=== PATIENT | male | born 1955 | race Caucasian/White ===

== ENCOUNTER 2019-12-10 09:04 | Inpatient (IN) | payer BC ==
[2019-12-03 17:00] VITALS: BMI 36.9
--- NOTE | 2019-12-10 07:42 | HP ---
Admitting History and Physical - Admission Chief Complaint: right knee osteoarthritis x years History of Present Illness: 64 year old male presents in regard to their right knee. Long-standing history of right knee osteoarthritis. Patient complains of pain, limited range of motion , difficulty ambulating, and difficulty with activities of daily living. Patient has failed conservative treatment options including PO medications, activity modification, injections, and exercise programs. At this point, patient like to proceed with surgical intervention, right total knee arthroplasty MAKOplasty. History Source: Patient - Past Medical History Cardiovascular: Yes: HTN Musculoskeletal: Yes: Osteoarthritis - Past Surgical History Additional Past Surgical History: See written history & physical. - Smoking History Smoking history: Never smoked Have you smoked in the past 12 months: No - Alcohol/Substance Use Hx Alcohol Use: Yes (SOCIAL) Home Medications - Allergies Allergies/Adverse Reactions: Allergies Allergy/AdvReac Type Severity Reaction Status Date / Time No Known Allergies Allergy Verified 12/03/19 16:49 - Home Medications Home Medications: Ambulatory Orders Fish Oil 1,000 mg Capsule 1 tab PO DAILY 12/03/19 Spironolactone 25 mg PO DAILY 12/03/19 Valsartan 320 mg PO DAILY 12/03/19 Review of Systems - Review of Systems Musculoskeletal: reports: Crepitus (right knee), Decreased ROM (right knee), Joint Pain (right knee), Joint Swelling (right knee) Physical Examination Constitutional: Yes: Well Nourished Eyes: Yes: Conjunctiva Clear HENT: Yes: Atraumatic Neck: Yes: Supple Cardiovascular: Yes: Regular Rate and Rhythm Respiratory: Yes: Regular Gastrointestinal: Yes: Soft ...Rectal Exam: Yes: Deferred Musculoskeletal: Yes: Joint Stiffness (right knee), Joint Swelling (right knee) Assessment/Plan 64 year male old presents in regard to their right knee. Long-standing history of right knee osteoarthritis. Patient complains of pain, limited range of motion , difficulty ambulating, and difficulty with activities of daily living. Patient has failed conservative treatment options including PO medications, activity modification, injections, and exercise programs. At this point, patient like to proceed with surgical intervention, right total knee arthroplasty MAKOplasty. Pros, cons, risks, benefits, and alternatives of a right total knee arthroplasty MAKOplasty were discussed with the patient at length. Patient confirms their understanding and consents to proceed with a right total knee arthroplasty MAKOplasty.
[~2019-12-10 09:04] MED LIST: CEFAZOLIN 2 GM in DEXTROSE 5%-WATER - 50 ML IVPB ONE; CELECOXIB 200 MG CAPSULE PO ONE; PANTOPRAZOLE 40 MG TABLET PO ONE; TRANEXAMIC ACID 1000 MG/10 ML VIAL IVPB ONE; TRANEXAMIC ACID 1000 MG/10 ML VIAL IVPUSH ONE; VANCOMYCIN 1,000 MG VIAL (RESTRICTED TO ID ONLY) IVPB ONE; oxyCODONE HCL 10 MG SUSTAINED ACTING TABLET PO ONE
[2019-12-10] MEDS ORDERED: DEXAMETHASONE SOD PHOSPHATE 4 MG/1 ML VIAL ONE ×2 (10:07→12:32)
[2019-12-10] MEDS ORDERED: KETOROLAC TROMETHAMINE 30 MG/1 ML VIAL ONE (10:07)
[2019-12-10] MEDS ORDERED: ONDANSETRON 4 MG/2 ML VIAL ONE ×2 (10:07→12:32)
[2019-12-10] MEDS ORDERED: TRANEXAMIC ACID 1000 MG/10 ML VIAL ONE ×4 (10:07→14:58)
[2019-12-10] MEDS ORDERED: ceFAZolin SODIUM 1 GM VIAL ONE ×3 (10:07→12:32)
[2019-12-10] MEDS ORDERED: PANTOPRAZOLE 40 MG TABLET ONE (10:08)
[2019-12-10] MEDS ORDERED: CELECOXIB 200 MG CAPSULE ONE (10:08)
[2019-12-10] MEDS ORDERED: MIDAZOLAM HCL 2 MG/2 ML SINGLE DOSE VIAL ONE ×3 (10:08→12:12)
[2019-12-10] MEDS ORDERED: oxyCODONE HCL 10 MG SUSTAINED ACTING TABLET ONE (10:08)
[2019-12-10] MEDS ORDERED: PROPOFOL 20 ML ONE ×3 (10:08→12:37)
[2019-12-10] MEDS ORDERED: BUPIVACAINE LIPOSOME/PF (EXPAREL) 266 MG/20 ML VIAL ONE (10:16)
[2019-12-10] MEDS ORDERED: VANCOMYCIN 1,000 MG VIAL (RESTRICTED TO ID ONLY) ONE (10:16)
[2019-12-10] MEDS ORDERED: SODIUM CHLORIDE 0.9% P/F 10 ML VIAL IJ ONE (10:17)
[2019-12-10] MEDS ORDERED: SUCCINYLCHOLINE CHLORIDE 200 MG/10 ML SYRINGE ONE (12:37)
[2019-12-10] MEDS ORDERED: ONDANSETRON 4 MG/2 ML VIAL IVPUSH PRN ×2 (13:15→16:28)
[2019-12-10] MEDS ORDERED: oxyCODONE HCL 5 MG TABLET PO PRN ×2 (13:15)
[2019-12-10] MEDS ORDERED: ACETAMINOPHEN 325 MG TABLET (FP) PO SCH (14:00)
[2019-12-10] MEDS ORDERED: VANCOMYCIN 1,000 MG VIAL (RESTRICTED TO ID ONLY) IVPB ONE (14:52)
[2019-12-10] MEDS ORDERED: TRANEXAMIC ACID 1000 MG/10 ML VIAL IVPB ONE (15:12)
[2019-12-10] MEDS ORDERED: traMADol HCL 50 MG TABLET ONE (15:50)
[2019-12-10] MEDS ORDERED: ACETAMINOPHEN INJECTION 100 ML IVPB ONE (15:50)
[2019-12-10] MEDS ORDERED: ACETAMINOPHEN 1000 MG/100 ML VIAL (NON FORMULARY) IVPB ONE (16:19)
[2019-12-10] MEDS ORDERED: MAG HYDROX/AL HYDROX/SIMETH 30 ML UNIT-DOSE CUP PO PRN (16:28)
[2019-12-10] MEDS ORDERED: MAGNESIUM HYDROX 2400MG/30ML ORAL SUSPENSION 30 ML CUP PO PRN (16:28)
[2019-12-10] MEDS ORDERED: LACTATED RINGERS SOLUTION 1,000 ML IV SCH (16:30)
--- NOTE | 2019-12-10 16:50 | OP ---
Operative Note - Note: Operative Date: 12/10/19 Pre-Operative Diagnosis: right knee OA Operation: right CHIKIS TKA Post-Operative Diagnosis: Same as Pre-op Surgeon: Ren Benavidez Pointer Machine Operator: Ana Evans Anesthesia: Spinal Estimated Blood Loss (mls): 200
[2019-12-10] MEDS: CEFAZOLIN 2 GM/D5W 2 GM/50 ML ML IVPB SCH (20:05)
[2019-12-10] MEDS: GABAPENTIN 300 MG CAPSULE PO SCH (21:13)
[2019-12-10] MEDS: CELECOXIB 200 MG CAPSULE PO SCH (21:13)
[2019-12-10] MEDS: SENNOSIDES/DOCUSATE COMBO (SENNA PLUS) TABLET (UD) PO SCH (21:13)
[2019-12-10] MEDS: ASCORBIC ACID 500 MG TABLET (FP) PO SCH (21:13)
[2019-12-11] MEDS ORDERED: DEXAMETHASONE SOD PHOSPHATE 10 MG/1 ML VIAL IVPB ONE
[2019-12-11] MEDS: KETOROLAC TROMETHAMINE 30 MG/1 ML VIAL IVPUSH SCH ×4 (00:47→18:25)
[2019-12-11] MEDS: ACETAMINOPHEN 325 MG TABLET (FP) PO SCH ×4 (00:48→18:20)
[2019-12-11] MEDS: traMADol HCL 50 MG TABLET PO SCH ×4 (00:49→18:20)
[2019-12-11] MEDS: CEFAZOLIN 2 GM/D5W 2 GM/50 ML ML IVPB SCH (03:09)
--- NOTE | 2019-12-11 06:01 | SURG ---
Surgery Balance Wheel Motion Inspector Note Balance Wheel Motion Inspector: Ana Evans PA-C Date of Service: 12/10/19 Diagnosis: right knee osteoarthritis Procedure: right total knee arthroplasty, Makoplasty I was present for the entirety of the operative procedure. For further detail, please refer to operative report.
[2019-12-11 07:48] LABS: CALCIUM 8.6 mg/dl (8.5-10); CREATININE 1.2 mg/dl (0.55-1.3); POTASSIUM 3.8 mmol/L (3.5-5.1)
[2019-12-11] MEDS: ASPIRIN 325 MG TABLET PO SCH (08:05)
[2019-12-11] MEDS: CELECOXIB 200 MG CAPSULE PO SCH ×2 (10:34→21:17)
[2019-12-11] MEDS: SENNOSIDES/DOCUSATE COMBO (SENNA PLUS) TABLET (UD) PO SCH ×2 (10:34→21:17)
[2019-12-11] MEDS: GABAPENTIN 300 MG CAPSULE PO SCH ×2 (10:34→21:17)
[2019-12-11] MEDS: MULTIVITAMINS (DAILY MVI) TABLET (FP) PO SCH (10:34)
[2019-12-11] MEDS: PANTOPRAZOLE 40 MG TABLET PO SCH (10:34)
[2019-12-11] MEDS: ASCORBIC ACID 500 MG TABLET (FP) PO SCH ×2 (10:35→21:17)
[2019-12-11 10:40] LABS: HEMATOCRIT 45.1 % (35.4-49); HEMOGLOBIN 14.8 GM/dL (11.7-16.9); MCH 30.4 pg (25.7-33.7); MCHC 32.9 g/dl (32.0-35.9); MEAN CELL VOLUME 92.4 fl (80-96); MEAN PLT VOLUME 10.6 fl (7.5-11.1); PLATELET COUNT 215 K/MM3 (134-434); RBC 4.88 M/mm3 (4.00-5.60); WHITE BLOOD COUNT 16.2 K/mm3 (4.0-10.0)
--- NOTE | 2019-12-11 13:02 | PN ---
Progress Note (short form) - Note Progress Note: Anesthesia postop note 64 y/o M s/p spinal anesthesia and regional block for pain management, for TKR POD#1, vss, aaox3, pain well controlled, no complaints, had PT today. No anesthesia complications.
--- NOTE | 2019-12-11 19:23 | PN ---
Progress Note (short form) - Note Progress Note: Pt seen and examined. Doing well. AVSS Selected Entries 12/11/19 14:17 Temperature 97.4 F L Respiratory 19 Rate Blood Pressure 126/77 O2 Sat by Pulse 98 Oximetry (%) Laboratory Tests 12/11/19 12/11/19 06:45 06:45 WBC 16.2 H Hgb 14.8 Hct 45.1 Plt Count 215 Sodium 134 L Potassium 3.8 Chloride 100 Carbon Dioxide 25 Anion Gap 9 BUN 23.0 H Creatinine 1.2 Est GFR (CKD-EPI)AfAm 74.66 Est GFR (CKD-EPI)NonAf 64.42 Random Glucose 179 H Calcium 8.6 Gen: NAD RLE: c/d/i, NVID A/P POD#1 s/p R CHIKIS BAL PT/OOB D/C home in AM
--- NOTE | 2019-12-11 19:27 | DS ---
Physical Examination Vital Signs: Vital Signs Temperature 97.4 F L 12/11/19 14:17 Pulse Rate 80 12/11/19 04:00 Respiratory Rate 19 12/11/19 14:17 Blood Pressure 126/77 12/11/19 14:17 O2 Sat by Pulse Oximetry (%) 98 12/11/19 14:17 Labs: CBC, BMP 12/11/19 06:45 12/11/19 06:45 Discharge Summary Problems reviewed: Yes Reason For Visit: RIGHT KNEE OSTEOARTHRITIS Current Active Problems Osteoarthritis of right knee (Acute) Procedures: Principal: right CHIKIS TKA Hospital Course: Admitted for elective surgery. Procedure performed without complications. Pt received postoperative antibiotic prophylaxis and DVT ppx. Ambulated with physical therapy. Stable for discharge home with outpatient followup. Condition: Stable - Instructions Diet, Activity, Other Instructions: Dr. Benavidez - Knee Replacement Instructions Keep the Aquacel dressing on until removed by Dr. Benavidez in the office - it is antibacterial and waterproof and you can shower with it on. Call the office for a follow-up appointment with Dr. Benavidez in 2 weeks. Take one Aspirin 325mg daily for 6 weeks to prevent blood clots in your legs. Take one Pantoprazole 40mg daily for 6 weeks to protect against heartburn and ulcers. Take Cephalexin (antibiotic) 3x/day for 10 days to help prevent skin infection. Take Celebrex 200mg twice daily for 30 days to reduce swelling and inflammation. Take a multivitamin, stool softener, and extra Vitamin C supplement daily. For pain: *Mild pain (1-3/10): Take 1 Tramadol tablet every 4 hours as needed. Moderate pain (4-6/10): Take 1 Tramadol tablet and 1 Percocet tablet every 4 hours as needed. Severe pain (7-10/10): Take 1 Tramadol tablet and 2 Percocet tablets every 4 hours as needed. Activity: You can put as much weight on the operative leg as you want. Right after you get home, there will be a physical therapist coming to your house to help you walk around and bend/straighten your knee. After your follow-up appointment, you will be sent for more intensive outpatient physical therapy which will include machines and equipment that the home therapist cannot bring to your house. Always use a walker or cane for balance and to prevent falls. Expect to see swelling/bruising from the operative site all the way down to your toes. Wear the compression stocking on the operative side during the day to minimize how much swelling there is in your foot/ankle. Don't wear the stocking at night. You don't have to wear a stocking on the other side. Disposition: [facility]/HOME HEALTH CARE - Home Medications Comprehensive Discharge Medication List: Ambulatory Orders [place]-3 Fatty Acids/Fish Oil [Fish Oil 1,000 mg Capsule] 1 each PO DAILY 12/03/19 Spironolactone 25 mg PO DAILY 12/03/19 Valsartan 320 mg PO DAILY 12/03/19 Ascorbic Acid [Vitamin C -] 500 mg PO BID tablet 12/11/19 Aspirin [ASA -] 325 mg PO DAILY@0800 tablet 12/11/19 Celecoxib [CeleBREX -] 200 mg PO BID #60 capsule 12/11/19 Cephalexin Monohydrate [Keflex -] 500 mg PO TID #30 capsule 12/11/19 Multivitamins [Multivit ([facility] Formulary)] 1 tab PO DAILY tab 12/11/19 Oxycodone HCl/Acetaminophen [Percocet 5-325 mg Tablet] 1 - 2 tab PO Q4H PRN #60 tablet MDD 10 12/11/19 Pantoprazole Sodium [Protonix -] 40 mg PO DAILY #40 tablet.ec 12/11/19 Sennosides/Docusate Sodium [Pericolace -] 2 tablet PO BID tablet 12/11/19 traMADol HCL [Ultram -] 50 mg PO Q4H PRN #42 tablet MDD 6 12/11/19
[2019-12-12] MEDS: traMADol HCL 50 MG TABLET PO SCH ×2 (00:03→06:14)
[2019-12-12] MEDS: ACETAMINOPHEN 325 MG TABLET (FP) PO SCH ×2 (00:04→06:15)
[2019-12-12 07:43] LABS: HEMOGLOBIN 12.6 GM/dl (11.7-16.9)
[2019-12-12 07:47] LABS: HEMATOCRIT 37.7 % (35.4-49); MCH 30.9 pg (25.7-33.7); MCHC 33.6 g/dl (32.0-35.9); MEAN PLT VOLUME 10.1 fl (7.5-11.1); PLATELET COUNT 159 K/MM3 (134-434); RDW 12.4 % (11.9-15.9); WHITE BLOOD COUNT 15.8 K/mm3 (4.0-10.8)
[2019-12-12] MEDS: LACTATED RINGERS SOLUTION 1,000 ML IV SCH (07:51)
[2019-12-12] MEDS: ASPIRIN 325 MG TABLET PO SCH (08:16)
[2019-12-12] MEDS: CELECOXIB 200 MG CAPSULE PO SCH (09:11)
[2019-12-12] MEDS: ASCORBIC ACID 500 MG TABLET (FP) PO SCH (09:11)
[2019-12-12] MEDS: PANTOPRAZOLE 40 MG TABLET PO SCH (09:11)
[2019-12-12] MEDS: GABAPENTIN 300 MG CAPSULE PO SCH (09:11)
[2019-12-12] MEDS: MULTIVITAMINS (DAILY MVI) TABLET (FP) PO SCH (09:11)
[2019-12-12] MEDS: SENNOSIDES/DOCUSATE COMBO (SENNA PLUS) TABLET (UD) PO SCH (09:12)
[2019-12-12 09:31] VITALS: BP 136/66; PULSE 82; TEMP 97.6
--- NOTE | 2019-12-12 14:14 | SPEC ---
DATE OF OPERATION: 12/10/2019 PREOPERATIVE DIAGNOSIS: Right knee osteoarthritis. POSTOPERATIVE DIAGNOSIS: Right knee osteoarthritis. PROCEDURE: Right total knee replacement with MAKOplasty robotic navigation. ATTENDING: Kristopher Gould MD PHYSICIAN SPECIALIST: WEN Sexton ANESTHESIA: Spinal plus sedation. ESTIMATED BLOOD LOSS: 200 mL COMPLICATIONS: None. DISPOSITION: The patient was transferred to the PACU in stable condition. IMPLANTS USED: [employer] Triathlon cementless knee components size 5 femur, size 6 tibia, 35 mm patellar component, 9 mm posterior stabilized polyethylene component. INDICATIONS: This is a 64-year-old male who presented to the office complaining of severe right knee pain. He was seen and examined by Dr. Gould and diagnosed with severe right knee osteoarthritis. The patient was initially treated non-operatively with injections, medications and physical therapy, but continued to have severe pain and ambulatory dysfunction. He was therefore indicated for a right total knee replacement. The risks, benefits and alternatives to the procedure were explained to the patient in great detail and he elected to proceed with the surgery. DESCRIPTION OF THE PROCEDURE: On the day of surgery, the patient was taken to the operating room and placed on the OR table. Spinal anesthesia was administered by the anesthesiologist. The patient was then positioned supine on the table and all bony prominences were padded. The knee was then prepped and draped in the usual sterile fashion and intravenous antibiotics were given for infection prophylaxis. A surgical time-out was then performed with the team, and the patients identity, procedure, side, availability of implants, and the administration of antibiotics was confirmed. With the knee flexed, a midline incision was made and carried down through the subcutaneous fat to the underlying retinaculum. A medial parapatellar arthrotomy was performed. This was followed by a subperiosteal dissection of the tissue off the proximal, medial tibia. A portion of fat pad was removed from under the patellar tendon, and a small portion of fat was excised off the distal supracondylar femur. Electrocautery and an Aquamantys bipolar sealing device were used to achieve hemostasis. The knee was then flexed further and the anterior horn of the lateral meniscus was released from the midline. Next, the anterior and posterior cruciate ligaments were transected. Grade 4 changes were noted diffusely throughout the knee. Femoral and tibial checkpoints were then placed in the appropriate location using a mallet. Two parallel bicortical self-drilling pins were placed in the tibial diaphysis after making stab incisions and bluntly dissecting down to bone. Two pins were then placed in the distal supracondylar femur. The [employer] navigation arrays were then attached to both the femoral and tibial pins and the lower extremity was then registered to the robotic navigation device using various joint movements, as well as inputting several dozen reference points. The knee was then taken through a full range of motion with a corrective force applied. Alignment in varus/valgus as well as flexion/extension and soft tissue balance was measured in various positions. The navigation device showed a numerical and graphic representation of the soft tissue balance. The components were repositioned virtually using the software until optimal soft tissue balance was achieved on screen. Once this was accomplished, the final plan was saved and sent to the robot. Self-retaining retractors were then placed at the joint line for exposure and protection of the collateral ligaments. The robot was brought into the sterile field and registered with the navigation device. The robotic arm with attached oscillating saw blade was then used to perform femoral and tibial bone cuts as per the saved software plan. The femoral box cut was made using the appropriately sized manual cutting guide. The knee was then irrigated. Trial components were placed and the knee was taken through a full range of motion to assess soft tissue balance and alignment. The range of motion was found to be excellent and the soft tissue balance was optimal and according to plan. The knee was then put into extension and the patella everted. The synovium around the patella was circumscribed with electrocautery. A caliper was used to measure the patellar thickness and a saw was then used to resect the patella at the chondro-osseous junction. The cut surface was then sized and drilled for the appropriate patellar button, with care taken to medialize it. A trial patella was then placed and the knee was again taken through a full range of motion. The knee was found to have both good balance and good patellar tracking. All of the components were removed except the tibial base plate. The appropriate instrumentation was used to drill and punch the proximal tibia for the keel of the final component. All bony surfaces were then cleaned with pulsatile lavage and dried. Cementless Baldemar Triathlon knee replacement components were then impacted in place and found to have a stable press-fit. A trial polyethylene component was placed and the knee was again taken through a full range of motion to assess stability, balance, and patellar tracking. This was found to be optimal and the trial polyethylene was exchanged for the appropriately sized real implant. The wound was then thoroughly irrigated with normal saline. A 3-minute dilute Betadine lavage was performed. The knee was again irrigated using a pulsatile lavage device. A periarticular injection was used to locally infiltrate the capsular tissues surrounding the implant and prosthesis. Then No. 1 Polysorb and 0 VLoc 180 barbed sutures were used to close the arthrotomy. Then No. 1 Polysorb and 2-0 VLoc 90 sutures were used in the subcutaneous tissues. Then 4-0 undyed Vicryl and Dermabond skin adhesive was used to close the stab incisions made for the navigation pins. The skin was closed using both 3-0 VLoc 90 suture in a running subcuticular fashion and Dermabond skin adhesive. Once this was completed a sterile Aquacel dressing and compressive Quintin-wrap was applied. The patient was then awakened and taken to the PACU in stable condition. KRISTOPHER GOULD M.D. [id number]
--- NOTE | 2019-12-13 15:41 | PATH ---
Surgical Pathology Report Patient Name: BOSTON GABRIEL Med. Rec. #: [id number] /Age/Gender: 1955 (Age: 64) / M Account: [id number] Location: [facility] Taken: 12/10/2019 Received: 12/10/2019 Reported: 12/13/2019 Physicians: Ren Benavidez M.D. Specimen(s) Received RIGHT KNEE BONES Clinical History Right knee osteoarthritis Final Diagnosis KNEE BONES, RIGHT, TOTAL KNEE REPLACEMENT: DEGENERATIVE JOINT DISEASE. Electronically Signed Francoise Albarran M.D. Gross Description Received in formalin labeled "right knee bones," is a 13.5 x 10.5 x 2.0 cm aggregate of multiple portions of bone and soft tissue. The tibial plateau measures 7.8 x 5.1 x 1.4 cm. There are multiple areas of eburnation present, measuring up to 3.0 cm in greatest dimension. The remaining articular surfaces are zaragoza-brown and focally granular. The underlying trabecular bone is yellow and hard. Implementation Advisor sections are submitted in one cassette, following decalcification. /12/12/2019 [facility]12/12/2019
== END 2019-12-12 11:25 | disposition home health service (06) | DRG 470 ==
LOC: FM/S 09:04
PROVIDERS: ADMIT Student in an Organized Health Care Education/Training Program; ATTEND Student in an Organized Health Care Education/Training Program
PROC: 8E0Y0CZ Robotic Assisted Procedure of Lower Extremity, Open Approach (ICD-10-PCS; 2019-12-10)
PROC: 0SRC0JA Replacement of Right Knee Joint with Synthetic Substitute, Uncemented, Open Approach (ICD-10-PCS; principal; 2019-12-10 13:15)
DX: M17.11 Unilateral primary osteoarthritis, right knee (principal); R26.2 Difficulty in walking, not elsewhere classified; I10 Essential (primary) hypertension
CPT/HCPCS: 36415; 73560-TC-RT-FY; 80048; 85027; 94760; 97116-GP; 97163-GP; J0131; J1100